=== PATIENT | female | born 1985 | race Caucasian/White ===

== ENCOUNTER 2018-04-25 13:05 | Emergency (ER) | payer OTHER ==
[~2018-04-25] VITALS: Ht 162.6 cm; Wt 60.0 kg
[~2018-04-25 13:05] MED LIST: ONDA4TAB6 PO
[2018-04-25 13:19] VITALS: BP 121/82
== END 2018-04-25 14:52 | disposition home or self-care (01) ==
LOC: ER 13:05
DX: S93.401A Sprain of unspecified ligament of right ankle, initial encounter (principal); Z98.51 Tubal ligation status; Z79.899 Other long term (current) drug therapy; W18.30XA Fall on same level, unspecified, initial encounter; Y93.89 Activity, other specified; Y92.89 Other specified places as the place of occurrence of the external cause; Y99.8 Other external cause status
CPT/HCPCS: 73610; 73630; 99284

== ENCOUNTER 2019-03-20 11:38 | Emergency (ER) | payer BC, OTHER ==
[~2019-03-20] VITALS: Ht 162.6 cm; Wt 60.5 kg
[2019-03-20 11:53] VITALS: BP 121/76
--- NOTE | 2019-03-20 12:09 | NUR ---
pt playing with friends son, she was wearing wedges and twisted left foot.
== END 2019-03-20 13:59 | disposition home or self-care (01) ==
LOC: ER 11:39
DX: S92.332A Displaced fracture of third metatarsal bone, left foot, initial encounter for closed fracture (principal); S92.342A Displaced fracture of fourth metatarsal bone, left foot, initial encounter for closed fracture; F17.200 Nicotine dependence, unspecified, uncomplicated; Z98.51 Tubal ligation status; Z98.890 Other specified postprocedural states; X50.1XXA Overexertion from prolonged static or awkward postures, initial encounter; Y93.02 Activity, running; Y92.89 Other specified places as the place of occurrence of the external cause; Y99.9 Unspecified external cause status
CPT/HCPCS: 73630; 99283

== ENCOUNTER 2022-05-25 16:57 | Emergency (ER) | payer BC ==
[~2022-05-25] VITALS: Ht 162.6 cm; Wt 58.2 kg
[2022-05-25 17:13] VITALS: BP 124/79
== END 2022-05-25 18:18 | disposition home or self-care (01) ==
LOC: VAS 16:58
DX: S92.401A Displaced unspecified fracture of right great toe, initial encounter for closed fracture (principal); Z98.51 Tubal ligation status; Z98.890 Other specified postprocedural states; X58.XXXA Exposure to other specified factors, initial encounter; Y93.89 Activity, other specified; Y92.89 Other specified places as the place of occurrence of the external cause; Y99.8 Other external cause status
CPT/HCPCS: 73660; 99283